=== PATIENT | female | born 1980 | race Caucasian/White ===

== ENCOUNTER → 2016-11-26 | Outpatient (CLI) | payer OTHER | LOC: FIMAGING 12:53 | PROVIDERS: ATTEND Family Medicine | DX: M25.571 Pain in right ankle and joints of right foot (principal) ==

== ENCOUNTER 2018-05-16 15:20 | Emergency (ER) | payer OTHER ==
[2018-05-16] MEDS ORDERED: MECLIZINE HCL 25 MG TAB PO ONE (16:30)
--- NOTE | 2018-05-16 17:01 | EDPHY ---
H & P Stated Complaint: positional vertigo since last evening Time Seen by Provider: 05/16/18 16:30 HPI/ROS: CHIEF COMPLAINT: Vaginal bleeding HISTORY OF PRESENT ILLNESS: 37-year-old female presents with vaginal bleeding. She was recently started on control pills for control of ovarian cyst. She is currently on the 22nd day of the 1st pack of her control pills. Onset of vaginal bleeding 2 days ago. Associated with mild pelvic cramping. Using 1-2 pads a day. Concerned about excessive and irregular vaginal bleeding. REVIEW OF SYSTEMS: complete 10 point ROS negative except at noted in the HPI - Personal History LMP (Females 10-55): 1-7 Days Ago Current Tetanus Diphtheria and Acellular Pertussis (TDAP): Yes - Medical/Surgical History Hx Asthma: Yes Hx Chronic Respiratory Disease: No Hx Diabetes: No Hx Cardiac Disease: No Hx Renal Disease: No Hx Cirrhosis: No Hx Alcoholism: No Hx HIV/AIDS: No Hx Splenectomy or Spleen Trauma: No Other PMH: asthma - Social History Smoking Status: Never smoked - Physical Exam Exam: General Appearance: Alert, pleasant Eyes: Pupils equal and round, no conjunctival pallor ENT, Mouth: Mucous membranes moist Neck: Normal inspection Respiratory: Lungs are clear to auscultation Cardiovascular: Regular rate and rhythm Gastrointestinal: Abdomen is soft, mild suprapubic tenderness Neurological: A&O, nonfocal, normal gait Skin: Warm and dry Extremities: Normal inspection Psychiatric: Mood and affect normal Constitutional: Initial Vital Signs Temperature (C) 36.7 C 05/16/18 15:21 Heart Rate 80 05/16/18 15:21 Respiratory Rate 18 05/16/18 15:21 Blood Pressure 137/80 H 05/16/18 15:21 O2 Sat (%) 95 05/16/18 15:21 O2 Delivery Mode Room Air Allergies/Adverse Reactions: grass pollen-perennial rye, standar [grass poll-perennial rye,std] Allergy ( Verified 05/16/18 15:21) soy Allergy (Verified 05/16/18 15:21) cats Allergy (Uncoded 04/10/15 02:41) Home Medications: Medication Instructions Recorded Fluticasone Propionate [Armonair 113 mcg IH 05/16/18 Respiclick] Qam-Dc-Lrugsx Tablet 05/16/18 Medical Decision Making ED Course/Re-evaluation: This patient presents with vaginal bleeding at the appropriate timing, given recent BCP rx. Not anemic and no evidence of serious hemorrhage. Differential Diagnosis: includes though not limited to severe anemia, hypotension, fibroid, ectopic , miscarriage. - Data Points Laboratory Results: 05/16/18 17:09 POC Hgb 13.9 gm/dL gm/dL (12.6-16.3) POC Hct 41 % % (38-47) POC Sodium 140 mEq/L mEq/L (135-145) POC Potassium 3.8 mEq/L mEq/L (3.3-5.0) POC Chloride 103 mEq/L mEq/L (97-110) POC BUN 13 mg/dL mg/dL (7-23) POC Creatinine 0.8 mg/dL mg/dL (0.6-1.0) POC Glucose 77 mg/dL mg/dL (70-100) Medications Given: Discontinued Medications Meclizine HCl (Meclizine Hcl) 25 mg PO EDNOW ONE Stop: 05/16/18 16:31 Last Admin: 05/16/18 16:47 Dose: 25 mg Point of Care Test Results: Chemistry 05/16/18 17:09 POC Sodium 140 mEq/L mEq/L (135-145) POC Potassium 3.8 mEq/L mEq/L (3.3-5.0) POC Chloride 103 mEq/L mEq/L (97-110) POC BUN 13 mg/dL mg/dL (7-23) POC Creatinine 0.8 mg/dL mg/dL (0.6-1.0) POC Glucose 77 mg/dL mg/dL (70-100) ISTAT H&H 05/16/18 17:09 POC Hgb 13.9 gm/dL gm/dL (12.6-16.3) POC Hct 41 % % (38-47) Departure - Departure Disposition: Home, Routine, Self-Care Clinical Impression: Vaginal bleeding Condition: Good Instructions: Dysfunctional Uterine Bleeding (ED) Additional Instructions: Start a new pack of control pills tomorrow. This will slow down the bleeding. Talk with your doctor about alternative control pills. Referrals: ROSA GORDON [Primary Care Provider] - As per Instructions
[2018-05-16 17:23] VITALS: BP 128/69
== END 2018-05-16 17:23 | disposition home or self-care (01) ==
DX: N93.9 Abnormal uterine and vaginal bleeding, unspecified (principal); Z79.3 Long term (current) use of hormonal contraceptives
CPT/HCPCS: 82435-PO; 82565-PO; 82947-PO; 84132-PO; 84295-PO; 84520-PO; 85014-PO

== ENCOUNTER 2019-01-07 07:15 | Emergency (ER) | payer OTHER ==
[2019-01-07] MEDS ORDERED: NS 1,000 ML IV ONE (07:29)
[2019-01-07] MEDS ORDERED: KETOROLAC 30 MG/1 ML SDV IVP ONE (07:52)
--- NOTE | 2019-01-07 07:57 | EDPHY ---
H & P Stated Complaint: left flank pain starting last night Time Seen by Provider: 01/07/19 07:45 HPI/ROS: CHIEF COMPLAINT: Left flank pain HISTORY OF PRESENT ILLNESS: 38-year-old female with history of kidney stones presents with left flank pain. Onset of dysuria 1 week ago. Dysuria has persisted and is currently mild. Onset of left flank pain last evening. The flank pain waxes and wanes and is currently 7/10. Associated with nausea. Similar to prior kidney stones. No fever. Last menstrual period 1 week ago and regular. REVIEW OF SYSTEMS: complete 10 point ROS reviewed and is negative except for the noted elements in the HPI - Personal History LMP (Females 10-55): 1-7 Days Ago - Medical/Surgical History Hx Asthma: Yes Hx Chronic Respiratory Disease: No Hx Diabetes: No Hx Cardiac Disease: No Hx Renal Disease: No Hx Cirrhosis: No Hx Alcoholism: No Hx HIV/AIDS: No Hx Splenectomy or Spleen Trauma: No Other PMH: asthma - Social History Smoking Status: Never smoked - Physical Exam Exam: General Appearance: Alert, pleasant, does not appear in pain Eyes: Pupils equal and round, no conjunctival pallor ENT, Mouth: Mucous membranes moist Neck: Normal inspection Respiratory: Lungs are clear to auscultation Cardiovascular: Regular rate and rhythm Gastrointestinal: Abdomen is soft and nontender Back: No CVA tenderness Neurological: A&O, nonfocal, normal gait Skin: Warm and dry Extremities: Normal inspection Psychiatric: Mood and affect normal Constitutional: Initial Vital Signs Temperature (C) 36.7 C 01/07/19 07:17 Heart Rate 102 H 01/07/19 07:17 Respiratory Rate 18 01/07/19 07:17 Blood Pressure 122/57 H 01/07/19 07:17 O2 Sat (%) 97 01/07/19 07:17 O2 Delivery Mode Room Air Allergies/Adverse Reactions: grass pollen-perennial rye, standar [grass poll-perennial rye,std] Allergy ( Verified 01/07/19 07:16) soy Allergy (Verified 01/07/19 07:16) cats Allergy (Uncoded 04/10/15 02:41) Home Medications: Medication Instructions Recorded Fluticasone Propionate [Armonair 113 mcg IH 05/16/18 Respiclick] Bmb-[id number] Tablet 05/16/18 Medical Decision Making - Diagnostics Imaging Results: Imaging Impressions Abdomen/Pelvis Ultrasound 01/07/19 07:52 Impression: Essentially unremarkable renal ultrasound. Jany Buchanan was notified of these findings by telephone at 8:27 AM on 01/07/2019 Imaging: Discussed imaging studies w/ will call clerk Radiologist ED Course/Re-evaluation: Assessment: Left flank pain and dysuria, suggestive of pyelonephritis and/or kidney stone. Patient appears comfortable and physical exam is normal. Labs and ultrasound ordered. Toradol IV given. Labs, urinalysis and renal ultrasound are all normal. No evidence of pyelonephritis or kidney stone. Results discussed with the patient and her father. Patient appears quite comfortable and is texting while I am talking to her. Will discharge home. Suggest ibuprofen 600 mg every 6 hr as needed for pain. Likely musculoskeletal etiology. Warning signs discussed. Differential Diagnosis: Differential diagnosis includes though it is not limited to appendicitis, cholecystitis, diverticulitis, pyelonephritis, bowel perforation, small bowel obstruction. - Data Points Laboratory Results: Laboratory Results 01/07/19 07:25 01/07/19 07:25 01/07/19 01/07/19 01/07/19 08:40 07:25 07:25 WBC RBC Hgb Hct MCV MCH MCHC RDW Plt Count MPV Neut % (Auto) Lymph % (Auto) [place] % (Auto) Eos % (Auto) Baso % (Auto) Nucleat RBC Rel Count Absolute Neuts (auto) Absolute Lymphs (auto) Absolute Monos (auto) Absolute Eos (auto) Absolute Basos (auto) Absolute Nucleated RBC Immature Gran % Immature Gran # Sodium 138 mEq/L mEq/L (135-145) Potassium 4.1 mEq/L mEq/L (3.5-5.2) Chloride 101 mEq/L mEq/L (97-110) Carbon Dioxide 27 mEq/l mEq/l (22-31) Anion Gap 10 mEq/L mEq/L (6-14) BUN 12 mg/dL mg/dL (7-23) Creatinine 0.7 mg/dL mg/dL (0.6-1.0) Estimated GFR > 60 Glucose 85 mg/dL mg/dL (70-100) Calcium 9.6 mg/dL mg/dL (8.5-10.4) Beta HCG, Qual NEGATIVE Urine Color PALE YELLOW Urine Appearance CLEAR Urine pH 6.0 (5.0-7.5) Ur Specific [place] 1.003 (1.002-1.030) Urine Protein NEGATIVE (NEGATIVE) Urine Ketones NEGATIVE (NEGATIVE) Urine Blood NEGATIVE (NEGATIVE) Urine Nitrate NEGATIVE (NEGATIVE) Urine Bilirubin NEGATIVE (NEGATIVE) Urine Urobilinogen NEGATIVE EU EU (0.2-1.0) Ur Leukocyte Esterase NEGATIVE (NEGATIVE) Urine Glucose NEGATIVE (NEGATIVE) 01/07/19 07:25 WBC 6.36 10^3/uL 10^3/uL (3.80-9.50) RBC 4.77 10^6/uL 10^6/uL (4.18-5.33) Hgb 15.6 g/dL g/dL (12.6-16.3) Hct 45.7 % % (38.0-47.0) MCV 95.8 fL fL (81.5-99.8) MCH 32.7 pg pg (27.9-34.1) MCHC 34.1 g/dL g/dL (32.4-36.7) RDW 12.0 % % (11.5-15.2) Plt Count 363 10^3/uL 10^3/uL (150-400) MPV 8.9 fL fL (8.7-11.7) Neut % (Auto) 56.4 % % (39.3-74.2) Lymph % (Auto) 28.9 % % (15.0-45.0) [place] % (Auto) 10.8 % % (4.5-13.0) Eos % (Auto) 2.7 % % (0.6-7.6) Baso % (Auto) 0.9 % % (0.3-1.7) Nucleat RBC Rel Count 0.0 % % (0.0-0.2) Absolute Neuts (auto) 3.58 10^3/uL 10^3/uL (1.70-6.50) Absolute Lymphs (auto) 1.84 10^3/uL 10^3/uL (1.00-3.00) Absolute Monos (auto) 0.69 10^3/uL 10^3/uL (0.30-0.80) Absolute Eos (auto) 0.17 10^3/uL 10^3/uL (0.03-0.40) Absolute Basos (auto) 0.06 10^3/uL 10^3/uL (0.02-0.10) Absolute Nucleated RBC 0.00 10^3/uL 10^3/uL (0-0.01) Immature Gran % 0.3 % % (0.0-1.1) Immature Gran # 0.02 10^3/uL 10^3/uL (0.00-0.10) Sodium Potassium Chloride Carbon Dioxide Anion Gap BUN Creatinine Estimated GFR Glucose Calcium Beta HCG, Qual Urine Color Urine Appearance Urine pH Ur Specific [place] Urine Protein Urine Ketones Urine Blood Urine Nitrate Urine Bilirubin Urine Urobilinogen Ur Leukocyte Esterase Urine Glucose Medications Given: Discontinued Medications Sodium Chloride (Ns) 1,000 mls @ 0 mls/hr IV ONCE ONE PRN Reason: Wide Open Stop: 01/07/19 07:30 Last Admin: 01/07/19 07:30 Dose: 1,000 mls Ketorolac Tromethamine (Toradol) 30 mg IVP EDNOW ONE Stop: 01/07/19 07:53 Last Admin: 01/07/19 08:17 Dose: 30 mg Departure - Departure Disposition: Home, Routine, Self-Care Clinical Impression: Left flank pain Condition: Good Instructions: Flank Pain (ED) Additional Instructions: Ibuprofen 600 mg 3 times daily while the pain persists. Your blood tests, urinalysis and kidney ultrasound are normal today. There is no sign of a kidney stone or kidney infection. Referrals: ROSA GORDON [Primary Care Provider] - 2-3 days, call for appt.
[2019-01-07 07:59] LABS: PLATELET COUNT 363 10^3/uL (150-400)
[2019-01-07 09:49] VITALS: BP 105/82
== END 2019-01-07 09:47 | disposition home or self-care (01) ==
DX: R10.9 Unspecified abdominal pain (principal); Z87.442 Personal history of urinary calculi
CPT/HCPCS: 96374; J1885